=== PATIENT | female | born 1985 | race African-American/Black ===

== ENCOUNTER 2016-07-19 04:53 | Inpatient (IN) ==
[2016-07-19] MEDS ORDERED: BUTORPHANOL 2 MG/ML VIAL IV PRN (05:14)
[2016-07-19] MEDS ORDERED: TERBUTALINE 1 MG/1 ML VIAL SUBCUT PRN (05:14)
[2016-07-19] MEDS ORDERED: ONDANSETRON 4 MG/2 ML VIAL IV PRN ×2 (05:14→15:29)
[2016-07-19] MEDS ORDERED: ACETAMINOPHEN 325 MG TABLET PO PRN ×2 (05:14→15:29)
[2016-07-19] MEDS ORDERED: OXYTOCIN/LR 20 UNIT/1,000 ML BAG IV SCH (05:30)
[2016-07-19] MEDS ORDERED: LACTATED RINGERS 1,000 ML IV SCH (05:30)
[2016-07-19] MEDS ORDERED: INFLUENZA VIRUS VACCINE 0.5 ML SYRINGE IM ONE (05:39)
[2016-07-19 05:48] LABS: Basophils % 0.1 % (0.0-0.8); Eosinophils # 0.2 10*3/uL (0.0-0.87); Eosinophils % 1.8 % (0.00-10.9); Hematocrit 32.8 VOL% (35.7-47.0); Hemoglobin 10.7 GM/DL (12.0-16.0); Immature Granulocytes Absolute 0.09 #; Lymphocytes # 1.7 10*3/uL (1.4-4.0); Lymphocytes % 18.5 % (21.3-54.2); Mean Corpuscular HGB Conc 32.6 GM/DL (32-36); Mean Corpuscular Hemoglobin 29 PG (27-34); Mean Corpuscular Volume 89.6 FL (87-102); Monocytes % 10.2 % (1.7-12.7); Neutrophils # 6.4 10*3/uL (1.4-7.4); Neutrophils % 68.4 % (38.7-73.9); Platelet Count 175 10*3/uL (130-400); Red Blood Count 3.66 10*6/uL (3.8-5.5); White Blood Count 9.3 10*3/uL (4.5-13.71)
[2016-07-19 06:21] LABS: Albumin 2.9 G/DL (3.4-5.0); Bilirubin,Total 0.5 MG/DL (0.2-1.0); Calcium 8.9 MG/DL (8.5-10.1); Osmolality,Calculated 276.3 MOS/KG (273-304); Total Protein 6.9 G/DL (6.4-8.3)
[2016-07-19] MEDS ORDERED: LACTATED RINGERS 1,000 ML IV ONE (13:15)
[2016-07-19] MEDS ORDERED: FAMOTIDINE 20 MG/2 ML VIAL IV ONE (13:15)
[2016-07-19] MEDS ORDERED: hydrOXYzine HCL 25 MG/1 ML VIAL IM PRN (13:16)
[2016-07-19] MEDS ORDERED: fentaNYL 2 MCG/ROPIV 0.2% EPID 150 ML EPIDURAL SCH (13:16)
[2016-07-19] MEDS ORDERED: PROMETHAZINE 25 MG/1 ML VIAL IM ONE (13:16)
[2016-07-19] MEDS ORDERED: diphenhydrAMINE 50 MG/1 ML VIAL IV PRN ×2 (13:16)
[2016-07-19] MEDS ORDERED: ePHEDrine 50 MG/ML AMP IV PRN (13:16)
[2016-07-19] MEDS ORDERED: CITRIC ACID/SODIUM CITRATE 30 ML UDCUP ONE (13:24)
--- NOTE | 2016-07-19 15:27 | Operative Note ---
Date of procedure: 07/19/16 Pre-op diagnosis: 40 weeks gestation Post-op diagnosis: same Procedure: vaginal delivery Pt admitted and had Pitocin after a cervicl exam of / mid and soft...seh ahd a [employer] cervcial ripening balloon placed and had the uterien inflated with 80 cc and the vainal balloon with 80 cc......The ballon was expedlled at 1 and she had AROM of clear fluid and had progression under an epidural to complete where she puished x 3 with subsequent delivery of the head suctioned at the perineum with a nuchal x 1 loose.... with clear fluid noted.....the body was delivered atraumatically and the cord was doubly clamped and cut ...Cord blood was obtained... the placenta was delivered and was meconium stained...sent to pathology for evaluation ....the perineuem showed a small hemostatic laceration x 2 .......the uterus was well contracted ..... Male apgars and weight were pending EBL 100 Anesthesia: epidural Surgeon / Physician: Janee Blackwood Estimated blood loss: other (100) Specimens: other (placenta and cord blood) Condition: stable Disposition: floor Results - Labs CBC & BMP: 07/19/16 05:43 07/19/16 05:43 Discharge Plan - Discharge Medications No Action Vit No.130/Iron/FA [ Vitamins] 1 each PO DAILY - Follow Up or Referral - Forms/Instructions
[2016-07-19] MEDS ORDERED: HYDROCORTISONE 2.5% RECTAL CREAM 30 GM TUBE TOP PRN (15:29)
[2016-07-19] MEDS ORDERED: OXYTOCIN/LR 20 UNIT/1,000 ML BAG IV ONE (15:29)
[2016-07-19] MEDS ORDERED: BISACODYL 10 MG SUPP RECTAL PRN (15:29)
[2016-07-19] MEDS ORDERED: RHO(D) IMMUNE GLOBULIN 300 MCG SYRINGE IM ONE (15:29)
[2016-07-19] MEDS ORDERED: MEASLES/MUMPS/RUBELLA VACCINE 0.5 ML VIAL SUBCUT ONE (15:29)
[2016-07-19] MEDS ORDERED: BENZOCAINE 20%/MENTHOL 0.5% SPRAY 56 GM CAN TOP PRN (15:29)
[2016-07-19] MEDS ORDERED: DIPH/TET/ACEL PERT BOOSTER VACCINE 0.5 ML VIAL IM ONE (15:29)
[2016-07-19] MEDS ORDERED: WITCH HAZEL PADS 100/JAR TOP PRN (15:29)
[2016-07-19] MEDS ORDERED: LANOLIN 50% CREAM 0.3 OZ TUBE TOP PRN (15:29)
--- NOTE | 2016-07-19 15:35 | OB/GYN History & Physical ---
History of Present Illness Chief complaint: induction of labor History of present illness: Ms. Alvarez is a 31 year old female at 40 weeks who presented here for indcution fo labor ...Seh had pirtocin schedueld wiht a cooks balloon ordered...... No problems this LMP of 10/13/15 and an EDC of 07/19/16 GBS negative Home Medications Medication Instructions Recorded Confirmed Type Vit No.130/Iron/FA 1 each PO DAILY 07/06/16 07/19/16 History [ Vitamins] Allergies Allergy/AdvReac Type Severity Reaction Status Date / Time No Known Allergies Allergy Verified 07/06/16 09:24 Medical,Surgical,& Family Hx - Medical History Reproductive: No history of: Ectopic , Complication - Surgical History Reproductive Surgeries: Patient denies;: Section - Family History Family History: Reports;: Family Heart Disease (mgm), Family Hypertension (mgm) , Family Stroke (mgm) Denies;: Family Anesthesia Reaction, Family Cancer, Family Diabetes, Family Hematology, Family Psychiatric Problems, Additional Family History - Social History Smoking Status: Never smoker Frequency of Alcohol Use: None 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 Absent: lymphadenopathy - Respiratory Respiratory exam: Present: clear to auscultation bilaterally. Absent: accessory muscle use, chest wall tenderness, decreased breath sounds - Breast Breasts: as per HPI Menstruation: as per HPI - Cardiovascular Cardiovascular exam: Present: regular rate and rhythm - GI/Abdominal GI/Abdominal exam: Present: normal bowel sounds. Absent: ascites, distended, firm - Extremities Exam Extremities exam: Present: normal inspection, normal capillary refill - Back Exam Back exam: Present: normal inspection. Absent: CVA tenderness (L), CVA tenderness (R), muscle spasm - Neurological Exam Neurological exam: Present: alert, oriented X3, normal gait - Psychiatric Psychiatric exam: Present: normal affect - Skin Skin exam: Present: normal color Results - Labs CBC & BMP: 07/19/16 05:43 07/19/16 05:43 Quality Measures - VTE Contraindication to Pharmacological VTE Prophylaxis: Active Bleeding
[2016-07-19] MEDS: IBUPROFEN 800 MG TABLET PO PRN (18:18)
[2016-07-19] MEDS: DOCUSATE SODIUM 100 MG CAPSULE PO SCH (22:15)
[2016-07-20] MEDS: oxyCODONE/ACETAMINOPHEN 5-325 MG TABLET PO PRN ×3 (00:32→15:13)
[2016-07-20 06:05] LABS: Basophils % 0.1 % (0.0-0.8); Eosinophils # 0.1 10*3/uL (0.0-0.87); Eosinophils % 0.8 % (0.00-10.9); Hemoglobin 10.3 GM/DL (12.0-16.0); Immature Granulocytes % 0.9 %; Lymphocytes # 1.6 10*3/uL (1.4-4.0); Lymphocytes % 14.7 % (21.3-54.2); Mean Corpuscular HGB Conc 32.2 GM/DL (32-36); Mean Corpuscular Hemoglobin 29 PG (27-34); Mean Corpuscular Volume 90.9 FL (87-102); Mean Platelet Volume 11.2 FL (9.6-12.0); Monocytes % 8.8 % (1.7-12.7); Neutrophils # 8.3 10*3/uL (1.4-7.4); Neutrophils % 74.7 % (38.7-73.9); Platelet Count 168 10*3/uL (130-400); Red Blood Count 3.52 10*6/uL (3.8-5.5); Red Cell Distribution Width 13.1 % (9.3-17.3); White Blood Count 11.1 10*3/uL (4.5-13.71)
[2016-07-20] MEDS: DOCUSATE SODIUM 100 MG CAPSULE PO SCH ×2 (08:36→22:30)
[2016-07-20] MEDS: MULTIVITAMIN (PRENATAL) TABLET PO SCH (08:36)
[2016-07-20] MEDS ORDERED: LACTATED RINGERS 1,000 ML IV ONE (09:00)
[2016-07-20] MEDS ORDERED: KETOROLAC 30 MG/1 ML VIAL IV ONE (09:00)
--- NOTE | 2016-07-20 11:09 | OB/GYN Progress Note ---
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 - Constitutional Vitals: Vital Signs Temp Pulse Resp BP Pulse Ox 07/20/16 07:24 98.7 F 80 18 104/70 98 07/20/16 04:00 98.3 F 74 18 102/61 99 07/20/16 00:00 98.3 F 77 18 117/73 97 07/19/16 20:00 98.9 F 87 18 116/67 99 07/19/16 18:30 97.8 F 115 H 20 118/81 99 07/19/16 18:18 97.4 F L 07/19/16 16:00 97.6 F 07/19/16 12:00 97.8 F General appearance: normal weight - Head Head exam: Present: normal inspection - Eye Eye exam: Present: EOMI - ENT ENT exam: Present: normal exam, normal external ear exam - Neck Neck exam: Present: normal inspection - Respiratory Respiratory exam: Present: clear to auscultation bilaterally. Absent: accessory muscle use, chest wall tenderness, decreased breath sounds - Breast Breasts: as per HPI Menstruation: as per HPI - Cardiovascular Cardiovascular exam: Present: regular rate and rhythm - GI/Abdominal GI/Abdominal exam: Present: normal bowel sounds - Extremities Exam Extremities exam: Present: normal inspection, normal capillary refill - Neurological Exam Neurological exam: Present: alert, oriented X3, normal gait Results - Labs CBC & BMP: 07/20/16 05:31 07/19/16 05:43
[2016-07-20] MEDS ORDERED: RHO(D) IMMUNE GLOBULIN 300 MCG SYRINGE IM ONE (12:00)
[2016-07-20] MEDS: IBUPROFEN 800 MG TABLET PO PRN ×2 (15:12→22:30)
[2016-07-21] MEDS: oxyCODONE/ACETAMINOPHEN 5-325 MG TABLET PO PRN ×2 (06:00→12:02)
[2016-07-21] MEDS: IBUPROFEN 800 MG TABLET PO PRN ×2 (06:00→12:03)
[2016-07-21] MEDS: DOCUSATE SODIUM 100 MG CAPSULE PO SCH (08:41)
[2016-07-21] MEDS: MULTIVITAMIN (PRENATAL) TABLET PO SCH (08:41)
--- NOTE | 2016-07-21 11:20 | Pathology Report from [facility] ---
ACCESSION # : [id number] PATIENT NAME : Griffin Alvarez ORDERING DR : HARVEY ESPARZA CLINICAL HX: IUP 40 weeks POST-OP DX: Same SPECIMEN INFO: Placenta GROSS DESCRIPTION: The specimen is received fresh labeled "GRIFFIN ALVAREZ./ PLACENTA" consists of a 546 gm placenta measuring 18.5 x 18.0 x 2.8 cm. The membranes are translucent with Meconium staining noted. The umbilical cord measures 34.5 cm, contains three vessels, and eccentrically inserted. The surface is blue-zamorano and intact. The maternal surface displays hemorrhagic intact cotyledons with few scattered calcifications seen. Sectioning reveal no gross abnormalities. Section submitted: (A) membranes and cord, (B) and maternal surfaces. DIAGNOSIS FOR GRIFFIN ALVAREZ: PLACENTA: Trivascular umbilical cord. Unremarkable membranes. Term placenta with dystrophic calcification and subchorionic fibrin deposition. SERVICE DATE: 07/20/2016 REPORT DATE: 07/21/2016 PATHOLOGIST: Eder Loredo III, M.D. MTDD
[2016-07-21 11:37] VITALS: BP 120/71
--- NOTE | 2016-07-21 13:22 | Discharge Summary ---
Hospital Course - Hospital Course Hospital Course: Pt admitted at 40 weeks and had Pitocin followed by a rosibel ballon which was expeled at around 1 with AROM of clear fluid ....Pt noted to be 8 cm at that time and under epidural progressed to complete....She pushed and delivered without complication....She did have a problem with a headache afterwards initially treated with Motrin 800 mg / increased caffeine/ IVF........ she also was evaluated by anesthesia who felt this was not an epidural related headache .....no fever Pt discharged wiht Motrin 800 mg (30) 1 every 8 hours [place] 7.5/325 mg (18) 1 every 3 hours or 2 every 6 hours (18) follow-up with me next week fro circ... Specialty Discharge - Follow Up or Referrals - Discharge Medications No Action Vit No.130/Iron/FA [ Vitamins] 1 each PO DAILY Discharge Plan - Discharge Data Disposition: Disch To Home/Self Care Condition at Discharge: Stable Discharge Diet: advance to your usual diet Hygiene: no restrictions Weight Bearing at Discharge: full weight bearing Driving: no restrictions Contact your physician if you experience:: fever over 101, Difficulty voiding, Shortness of breath, Bleeding - Discharge Medications No Action Vit No.130/Iron/FA [ Vitamins] 1 each PO DAILY - Follow Up or Referral - Forms/Instructions Instructions: Perineal Care (DC), Vaginal Delivery (DC), Bleeding (DC) Exam - Constitutional Vitals: Period Temp Pulse Resp BP Sys/Mcgarry Pulse Ox Last 24 Hr 97.6 F-98.6 F 63-77 16-20 113-141/68-84 97-98 General appearance: normal weight - Head Head exam: Present: normal inspection - ENT ENT exam: Present: normal exam, normal external ear exam - Neck Neck exam: Present: normal inspection - Respiratory Respiratory exam: Present: clear to auscultation bilaterally. Absent: accessory muscle use - Cardiovascular Cardiovascular exam: Present: regular rate and rhythm - GI/Abdominal GI/Abdominal exam: Present: normal bowel sounds DS: Provider Date of admission: 07/19/16 05:14 Primary care physician: . No PCP Attending physician on admission: Jude Sung Consults: 07/19/16 05:14 Consult to Anesthesiology [CONS] Routine Consulting Provider: Reason for Anesthesiology: Epidural Consult Comment: Epidural for pain managment 07/19/16 15:30 Consult to Statistics Intern [CONS] Routine Consult Statistics Intern: Breast Feeding Discharging clinician: Jude Sung Expected date of discharge: 07/21/16
== END 2016-07-21 14:55 | disposition home or self-care (01) | DRG 774 ==
LOC: N.LDOUT 04:53 → N.LD 05:03 → N.OB 18:41
PROVIDERS: ADMIT Obstetrics & Gynecology; ATTEND Obstetrics & Gynecology